=== PATIENT | female | born 1995 ===

== ENCOUNTER 2018-03-05 23:51 | Emergency (ER) | payer MEDICAID ==
[2018-03-05 23:51] VITALS: BMI 19.5
[2018-03-06 00:07] VITALS: BP 131/83; PULSE 105; RESP 20; TEMP 99; O2SAT 95
--- NOTE | 2018-03-06 00:43 | C.PDOC ---
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 Pt denies radiation of the pain, no weakness, numbness of the extremities, no UTI sx, no urinary or bowel incontinence. Pt denies trauma Time Seen by Provider: 03/06/18 00:14 Chief Complaint (Nursing): Back Pain History Per: Patient History/Exam Limitations: no limitations Current Symptoms Are (Timing): Still Present Quality Of Discomfort: Aching Severity: Moderate Associated Symptoms: None. denies: Incontinence, New Weakness, New Numbness Exacerbating Factor(s): Turning, Movement Past Medical History Vital Signs: Last Vital Signs Temp 99.0 F 03/06/18 00:03 Pulse 105 H 03/06/18 00:03 Resp 20 03/06/18 00:50 BP 131/83 03/06/18 00:03 Pulse Ox 95 03/06/18 01:03 - Medical History PMH: No Chronic Diseases Family History: States: Unknown Family Hx - Social History Hx Tobacco Use: No Hx Alcohol Use: No Hx Substance Use: No - Immunization History Hx Tetanus Toxoid Vaccination: Yes Hx Influenza Vaccination: No Hx Pneumococcal Vaccination: No Review Of Systems Constitutional: Negative for: Fever Gastrointestinal: Negative for: Abdominal Pain Genitourinary: Negative for: Dysuria, Frequency, Incontinence, Hematuria Musculoskeletal: Positive for: Back Pain (low) Neurological: Negative for: Weakness, Numbness Physical Exam - Physical Exam Appears: Well, No Acute Distress Eye(s): bilateral: Normal Inspection Gastrointestinal/Abdominal: Normal Exam, Soft, No Tenderness Back: Normal Inspection, No CVA Tenderness, No Vertebral Tenderness, Decreased ROM (of lower back, causes pain), Muscle Spasm, Paraspinal Tenderness ( paralumbar), No Straight Leg Raising Extremity: Normal ROM, No Tenderness Extremity: Bilateral: Atraumatic, Normal Color And Temperature Neurological/Psych: Oriented x3, Normal Motor, Normal Sensation Gait: Steady ED Course And Treatment O2 Sat by Pulse Oximetry: 95 Pulse Ox Interpretation: Normal Progress Note: Motrin and flexeril ordered and pt reports improvimg pain. Pt is conversing happily with relatives and appears not in distress. Pt advised to follow up with PMD and return precautions were discussed Reevaluation Time: 00:40 Reassessment Condition: Improved Disposition Counseled Patient/Family Regarding: Diagnosis, Need For Followup, Rx Given - Disposition Referrals: [facility] [Outside] Disposition: HOME/ ROUTINE Disposition Time: 00:43 Condition: STABLE Additional Instructions: Take medications as directed Follow up with PMD Return to ER if worse Prescriptions: Cyclobenzaprine [Cyclobenzaprine HCl] 10 mg PO HS #7 tab Ibuprofen [Motrin] 600 mg PO Q6H #20 tab Instructions: Lumbar Muscle Strain (DC) Forms: [employer] ([place]), School Excuse - Clinical Impression Clinical Impression: Low back strain
== END 2018-03-06 00:50 | disposition home or self-care (01) ==
LOC: C.ER 23:51
DX: S39.012A Strain of muscle, fascia and tendon of lower back, initial encounter (principal); X50.9XXA Other and unspecified overexertion or strenuous movements or postures, initial encounter